=== PATIENT | female | born 1955 | race Caucasian/White ===

== ENCOUNTER 2017-11-11 00:36 | Emergency (ER) | payer MEDICARE, MEDICAID ==
[~2017-11-11] VITALS: Ht 160 cm; Wt 58.1 kg
[~2017-11-11 00:36] MED LIST: AMARYL2 MG PO; AZITHROMYCIN 2250 MG PO; BENTYL 10 MG CA10 M1; CEFDINIR300 MG PO; CHERACOL COUGH120 ML PO; CHERATUSSIN DA480 ML PO; COMBIVENT INH; CRESTOR5 MG PO; CYCLOBENZAPRINE10 MG PO; DOXYCYCLINE 10100 MG PO; DUONEB 2.5-0.5 M3 ML INH; GLUCOPHAGE1000 MG PO; IBUPROFEN 800800 MG PO; KEFLEX500 MG PO; LIORESAL 10 MG10 MG; LISINOPRIL5 MG; LISINOPRIL5 MG PO; NORCO 5-325 TA1 EACH PO; OMEPRAZOLE; PRILOSEC40 MG PO; SEROQUEL 100 M100 MG PO; SINGULAIR 10 MG10 M1 PO; TESSALON200 MG PO; TRILIPIX135 MG PO; VENTOLIN HFA 1818 GM INH; VYTORIN; VYVANSE20 MG; ZOLOFT100 MG PO; ZPAK PO
[2017-11-11 01:19] VITALS: BP 154/69
== END 2017-11-11 01:20 | disposition home or self-care (01) ==
LOC: M.ERS 00:36
DX: S80.812A Abrasion, left lower leg, initial encounter (principal); E11.9 Type 2 diabetes mellitus without complications; I10 Essential (primary) hypertension; E78.00 Pure hypercholesterolemia, unspecified; F41.9 Anxiety disorder, unspecified; F31.9 Bipolar disorder, unspecified; Z90.49 Acquired absence of other specified parts of digestive tract; Z88.0 Allergy status to penicillin; Z88.1 Allergy status to other antibiotic agents; Z88.8 Allergy status to other drugs, medicaments and biological substances; X58.XXXA Exposure to other specified factors, initial encounter; Y93.89 Activity, other specified; Y92.89 Other specified places as the place of occurrence of the external cause; Y99.8 Other external cause status

== ENCOUNTER 2018-12-09 22:44 | Emergency (ER) | payer MEDICARE, MEDICAID ==
[~2018-12-09] VITALS: Ht 157.5 cm; Wt 59.0 kg
[~2018-12-09 22:44] MED LIST changes: +NORCO 5-325 TA1 EAC1 PO
[2018-12-09 23:08] VITALS: BP 114/74
== END 2018-12-09 23:08 | disposition home or self-care (01) ==
LOC: M.ERS 22:44
DX: S61.210A Laceration without foreign body of right index finger without damage to nail, initial encounter (principal); E11.9 Type 2 diabetes mellitus without complications; I10 Essential (primary) hypertension; F41.9 Anxiety disorder, unspecified; E78.00 Pure hypercholesterolemia, unspecified; J45.909 Unspecified asthma, uncomplicated; F31.9 Bipolar disorder, unspecified; Z90.710 Acquired absence of both cervix and uterus; Z90.49 Acquired absence of other specified parts of digestive tract; Z88.2 Allergy status to sulfonamides; Z88.0 Allergy status to penicillin; Z88.1 Allergy status to other antibiotic agents; Z91.041 Radiographic dye allergy status; Z88.8 Allergy status to other drugs, medicaments and biological substances; W26.8XXA Contact with other sharp object(s), not elsewhere classified, initial encounter; Y93.89 Activity, other specified; Y92.89 Other specified places as the place of occurrence of the external cause; Y99.8 Other external cause status

== ENCOUNTER 2021-05-02 11:39 | Emergency (ER) | payer MEDICARE, MEDICAID ==
[~2021-05-02] VITALS: Ht 157.5 cm; Wt 59.0 kg
[2021-05-02] MEDS ORDERED: ZANAFLEX4 MG PO (14:43)
[2021-05-02 14:58] VITALS: BP 125/54
== END 2021-05-02 14:59 | disposition home or self-care (01) ==
LOC: M.ERS 11:39
DX: S01.81XA Laceration without foreign body of other part of head, initial encounter (principal); S80.212A Abrasion, left knee, initial encounter; E11.9 Type 2 diabetes mellitus without complications; I10 Essential (primary) hypertension; F41.9 Anxiety disorder, unspecified; F32.9 Major depressive disorder, single episode, unspecified; J45.909 Unspecified asthma, uncomplicated; E78.00 Pure hypercholesterolemia, unspecified; Z90.710 Acquired absence of both cervix and uterus; Z90.49 Acquired absence of other specified parts of digestive tract; Z79.899 Other long term (current) drug therapy; Z88.0 Allergy status to penicillin; Z88.2 Allergy status to sulfonamides; Z91.02 Food additives allergy status; W19.XXXA Unspecified fall, initial encounter; Y93.89 Activity, other specified; Y92.89 Other specified places as the place of occurrence of the external cause; Y99.8 Other external cause status